=== PATIENT | female | born 1960 | race Caucasian/White ===

== ENCOUNTER 2022-03-23 06:36 | Observation (INO) | payer OTHER ==
[2022-03-20 08:27] LABS: BASOPHILS % 0.5 % (0.0-1.0); EOSINOPHILS # (AUTO) 0.1 (0.0-0.4); HEMOGLOBIN 13.5 g/dL (12.0-16.0); LYMPHOCYTES % 26.9 % (18.0-39.1); MEAN CORPUSCULAR HEMOGLOBIN 29.5 pg (28-32); MEAN CORPUSCULAR HGB CONC 32.1 g/dL (31-35); MEAN CORPUSCULAR VOLUME 91.7 fL (81-99); MONOCYTES # (AUTO) 0.4 (0.2-0.8); MONOCYTES % 5.8 % (4.4-11.3); NEUTROPHILS # (AUTO) 4.8 (2.1-6.9); NEUTROPHILS % 65.5 % (38.7-80.0); PLATELET COUNT 225 x10e3/uL (140-360); RED BLOOD COUNT 4.58 x10e6/uL (3.6-5.1); RED CELL DISTRIBUTION WIDTH 12.8 % (11.7-14.4)
[~2022-03-23] VITALS: Ht 147.3 cm; Wt 84.4 kg
[~2022-03-23 06:36] MED LIST: AMLODIPINE BESY10 MG PO; CYMBALTA20 MG PO; LEVOTHYROXINE88 MCG PO; LIPITOR40 MG PO; LISINOPRIL10 MG PO; PLAQUENIL200 MG PO
[2022-03-23] MEDS ORDERED: GABAPENTIN 300 MG CAP ONE (07:25)
[2022-03-23] MEDS ORDERED: DEXAMETHASONE SOD PHOS 10 MG/1 ML VIAL ONE (07:25)
[2022-03-23] MEDS ORDERED: CELECOXIB 200 MG CAP ONE (07:25)
[2022-03-23] MEDS ORDERED: ROPIVACAINE 246.25 MG, EPINEPHRINE HCL 1:1000 1ML 0.5 MG, CLONIDINE HCL 0.08 MG, KETORO... INJ ONE ×5 (08:00)
[2022-03-23] MEDS ORDERED: Vancomycin IV 1,000 MG ONE (10:08)
[2022-03-23] MEDS ORDERED: TRANEXAMIC ACID 20 ML ONE (10:08)
[2022-03-23] MEDS ORDERED: SODIUM CHLORIDE 0.9% 500ML 500 ML ONE (10:08)
[2022-03-23] MEDS ORDERED: Morphine 2mg Syringe 2 MG/ML SYR ONE (10:30)
[2022-03-23] MEDS ORDERED: SODIUM CHLORIDE 0.9% 1000ML 1,000 ML IV SCH (12:15)
[2022-03-23] MEDS ORDERED: HYDROCODONE/APAP 5MG-325MG TAB PO PRN (12:15)
[2022-03-23] MEDS ORDERED: ONDANSETRON HCL INJ 2MG/ML 2ML 2 MG/ML VIAL IV PRN (12:15)
[2022-03-23] MEDS ORDERED: HYDROCODONE/APAP 7.5MG-325MG 1 EA TAB PO PRN (12:15)
[2022-03-23] MEDS ORDERED: DOCUSATE SODIUM 100 MG CAP PO PRN (12:15)
[2022-03-23] MEDS ORDERED: ACETAMINOPHEN 650 MG SUPP PR PRN (12:15)
[2022-03-23] MEDS ORDERED: ZOLPIDEM TARTRATE 5 MG TAB PO PRN (12:15)
[2022-03-23] MEDS ORDERED: DIPHENHYDRAMINE HCL INJ 50 MG/ML VIAL IV PRN (12:15)
[2022-03-23] MEDS ORDERED: MIDAZOLAM HCL 2 MG/2 ML VIAL ONE (12:37)
[2022-03-23] MEDS ORDERED: FENTANYL CITRATE/PF 100MCG/2 ML INJ ONE (12:37)
[2022-03-23] MEDS ORDERED: HYDROMORPHONE 1MG/1ML INJ ONE (12:52)
[2022-03-23 14:50] VITALS: BP 99/58
[2022-03-23] MEDS ORDERED: CELECOXIB 100 MG CAP PO SCH (17:00)
[2022-03-23] MEDS ORDERED: ASPIRIN 325 MG TAB PO SCH (17:00)
[2022-03-23] MEDS ORDERED: SEVOFLURANE INHAL SOLN 250 ML PEN BTL ONE (17:08)
[2022-03-23] MEDS ORDERED: ONDANSETRON HCL INJ 2MG/ML 2ML 2 MG/ML VIAL ONE (17:08)
[2022-03-23] MEDS ORDERED: DEXAMETHASONE SOD PHOS INJ 4 MG/ML SDV ONE (17:08)
[2022-03-23] MEDS ORDERED: POVIDONE IODINE 0.05% 0.05 % ML PO ONE (17:08)
[2022-03-23] MEDS ORDERED: LIDOCAINE HCL 2% LOCAL INJ 5 ML SDV VIAL INJ ONE (17:08)
[2022-03-23] MEDS ORDERED: PROPOFOL IV EMULSION 10 MG/ML 20 ML VIAL ONE (17:08)
[2022-03-23 17:09] VITALS: BP 99/58
[2022-03-23] MEDS ORDERED: ASPIRIN81 MG PO (18:22)
[2022-03-24] MEDS ORDERED: ACETAMINOPHEN 1000 MG/100 ML IV PRN (18:00)
== END 2022-03-23 18:42 | disposition home or self-care (01) ==
LOC: OR 06:36 → PACU V 12:16 → MED/SURG 14:44
PROVIDERS: ADMIT Specialist; ATTEND Specialist
DX: M16.11 Unilateral primary osteoarthritis, right hip (principal); M32.9 Systemic lupus erythematosus, unspecified; I10 Essential (primary) hypertension; Z88.5 Allergy status to narcotic agent; Z91.041 Radiographic dye allergy status; Z01.818 Encounter for other preprocedural examination; Z20.822 Contact with and (suspected) exposure to COVID-19; E66.09 Other obesity due to excess calories; Z68.38 Body mass index [BMI] 38.0-38.9, adult
CPT/HCPCS: 0223U; 27130; 36415; 71046; 72170; 85025; 86850; 86900; 86920; 94799; 97116 ×2; 97161; 97530; G0378; J0171; J0690; J1100 ×2; J1170; J1885; J2001; J2250; J2270; J2405; J2704; J2795; J3010; J3370; J7030; J7040; C1713; C1776